=== PATIENT | female | born 2000 | race Caucasian/White ===

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

== ENCOUNTER 2020-10-13 14:52 | Emergency (ER) | payer MEDICAID ==
[~2020-10-13] VITALS: Ht 149.9 cm; Wt 40.8 kg
[2020-10-13 15:00] VITALS: BP 145/98
--- NOTE | 2020-10-13 15:36 | NUR ---
PATIENT A/OX4, BREATHING EVEN AND UNLABORED, NO SOB NOTED, NEEDS ATTENDED. KEPT COMFORTABLE. Patient discharged to home in stable condition. Written and verbal after care instructions given. Patient verbalizes understanding of instruction.
== END 2020-10-13 15:38 | disposition home or self-care (01) ==
LOC: ER 14:59
DX: U07.1 COVID-19 (principal)

== ENCOUNTER 2024-03-09 01:47 | Emergency (ER) | payer BC, MEDICAID ==
[~2024-03-09] VITALS: Ht 149.9 cm; Wt 41.7 kg
[2024-03-09] MEDS ORDERED: ONDANSETRON HCL/PF 4 MG/2 ML VIAL ONE ×2 (03:17→03:41)
[2024-03-09] MEDS: IV NS 0.9% 1,000 ML BAG IV ONE (03:17)
[2024-03-09] MEDS: FAMOTIDINE/PF INJ 20 MG/2 ML VIAL IV ONE (03:17)
[2024-03-09] MEDS ORDERED: FAMOTIDINE/PF INJ 20 MG/2 ML VIAL IV ONE (03:17)
[2024-03-09] MEDS: ONDANSETRON HCL/PF 4 MG/2 ML VIAL IVP ONE (03:18)
[2024-03-09 03:23] LABS: BASOPHILS % (AUTO) 0.3 % (0.0-2.0); EOSINOPHILS % (AUTO) 0.2 % (0.0-6.0); HEMATOCRIT 41 % (33-45); HEMOGLOBIN 13.5 g/dL (11.5-14.8); LYMPHOCYTES # (AUTO) 1.4 K/uL (0.8-4.8); LYMPHOCYTES % (AUTO) 11.1 % (20.0-44.0); MEAN CORPUSCULAR HEMOGLOBIN 29 PG (26.0-33.0); MEAN CORPUSCULAR HGB CONC 33 g/dl (31.0-36.0); MEAN CORPUSCULAR VOLUME 89 fL (82-100); MONOCYTES # (AUTO) 0.8 K/uL (0.1-1.30); MONOCYTES % (AUTO) 6.2 % (2.0-12.0); NEUTROPHILS # (AUTO) 10.2 K/uL (1.8-8.9); NEUTROPHILS % (AUTO) 82.2 % (43.0-81.0); PLATELET COUNT (AUTO) 260 K/uL (150-450); RED BLOOD CELL COUNT(AUTO) 4.61 MIL/uL (4.0-5.2); RED CELL DISTRIBUTION WIDTH 13.4 % (11.5-15.0); WHITE BLOOD COUNT (AUTO) 12.4 K/uL (4.3-11.0)
[2024-03-09 03:33] LABS: CALCIUM, SERUM 9.4 mg/dL (8.5-10.1); CREATININE 0.9 mg/dL (0.6-1.3); POTASSIUM 3.6 mmol/L (3.5-5.1)
[2024-03-09 03:34] LABS: APPEARANCE,URINE CLOUDY (CLEAR); BILIRUBIN,URINE NEGATIVE (NEGATIVE); BLOOD, URINE 3+ Ery/uL (NEGATIVE); COLOR,URINE YELLOW (YELLOW); KETONES,URINE NEGATIVE (NEGATIVE); LEUKOCYTE ESTERASE ,URINE NEGATIVE (NEGATIVE); NITRITE, URINE NEGATIVE (NEGATIVE); PROTEIN,URINE TRACE mg/dl (NEGATIVE); UGLUCOSE NEGATIVE (NEGATIVE); UROBILINOGEN,URINE 0.2 EU/dL (0.2)
[2024-03-09 03:36] LABS: PREGNANCY TEST URINE QUAL NEGATIVE (NEGATIVE)
[2024-03-09 03:38] LABS: ADD URINE CULTURE NO; BACTERIA,URINE Rare /HPF (None Seen); RBC,URINE 21-50 /HPF (0-2); SQUAMOUS EPITHELIAL CELL,UR Few /HPF (None Seen); WBC,URINE 0-2 /HPF (0-3)
[2024-03-09 03:39] LABS: ALBUMIN 4.2 g/dL (3.4-5.0); BILIRUBIN,DIRECT 0.1 mg/dL (0.0-0.2); BILIRUBIN,TOTAL 0.3 mg/dL (0.2-1.0); TOTAL PROTEIN, SERUM 8.2 g/dL (6.4-8.2)
[2024-03-09] MEDS: ONDANSETRON HCL/PF 4 MG/2 ML VIAL IV ONE (03:47)
[2024-03-09] MEDS ORDERED: MAG HYDROX/AL HYDROX/SIMETH 30 ML UDC ONE (04:13)
[2024-03-09] MEDS ORDERED: LIDOCAINE VISCOUS 2% UD 15 ML UDC ONE (04:13)
[2024-03-09] MEDS: LIDOCAINE VISCOUS 2% UD 15 ML UDC MM ONE (04:24)
[2024-03-09] MEDS: MAG HYDROX/AL HYDROX/SIMETH 30 ML UDC PO ONE (04:24)
[2024-03-09] MEDS ORDERED: METOCLOPRAMIDE HCL 10 MG/2 ML VIAL ONE (05:36)
[2024-03-09] MEDS: METOCLOPRAMIDE HCL 10 MG/2 ML VIAL IV ONE (05:37)
[2024-03-09] MEDS ORDERED: ONDA4TAB5 PO (05:57)
[2024-03-09 06:10] VITALS: BP 112/78; TEMP 97.7; O2SAT 99
== END 2024-03-09 06:11 | disposition home or self-care (01) ==
LOC: ER 01:59
DX: R11.2 Nausea with vomiting, unspecified (principal)
CPT/HCPCS: 99284; 96374; 96361; 96375 ×2; 85025; 80048; 87086; 83690; 80076; 84703; 81001; 36415; 84702; J3490; J2765; J2405 ×2; J7030 ×2

== ENCOUNTER → 2024-03-12 | Emergency (ER) | payer BC, MEDICAID ==
[~2024-03-12] VITALS: Ht 149.9 cm; Wt 40.4 kg
[~2024-03-12] MED LIST: HYDR-3972 PO; HYDR-3976 GT; HYDR-4303 PO; IBUP-1953 PO; KETO10TA2 PO; KETOROLAC TROMETHAMINE 15 MG/ML VIAL ONE; ONDA4TAB5 PO; TAMS-12 PO; TRAM50TA2 PO
[2024-03-12] MEDS: IV NS 0.9% 1,000 ML BAG IV ONE (11:30)
[2024-03-12] MEDS: KETOROLAC TROMETHAMINE 15 MG/ML VIAL IV ONE (11:30)
[2024-03-12 11:51] LABS: BASOPHILS % (AUTO) 0.3 % (0.0-2.0); EOSINOPHILS % (AUTO) 0.1 % (0.0-6.0); HEMATOCRIT 45 % (33-45); HEMOGLOBIN 14.7 g/dL (11.5-14.8); LYMPHOCYTES # (AUTO) 2.5 K/uL (0.8-4.8); LYMPHOCYTES % (AUTO) 17.1 % (20.0-44.0); MEAN CORPUSCULAR HEMOGLOBIN 29 PG (26.0-33.0); MEAN CORPUSCULAR HGB CONC 33 g/dl (31.0-36.0); MEAN CORPUSCULAR VOLUME 89 fL (82-100); MONOCYTES # (AUTO) 1.3 K/uL (0.1-1.30); MONOCYTES % (AUTO) 8.7 % (2.0-12.0); NEUTROPHILS # (AUTO) 10.7 K/uL (1.8-8.9); NEUTROPHILS % (AUTO) 73.8 % (43.0-81.0); PLATELET COUNT (AUTO) 270 K/uL (150-450); RED BLOOD CELL COUNT(AUTO) 5.04 MIL/uL (4.0-5.2); RED CELL DISTRIBUTION WIDTH 13.6 % (11.5-15.0); WHITE BLOOD COUNT (AUTO) 14.5 K/uL (4.3-11.0)
[2024-03-12 11:52] LABS: APPEARANCE,URINE SLIGHTLY CLOUDY (CLEAR); BILIRUBIN,URINE 1+ (NEGATIVE); BLOOD, URINE 2+ Ery/uL (NEGATIVE); COLOR,URINE YELLOW (YELLOW); KETONES,URINE 3+ mg/dL (NEGATIVE); LEUKOCYTE ESTERASE ,URINE NEGATIVE (NEGATIVE); NITRITE, URINE NEGATIVE (NEGATIVE); PROTEIN,URINE NEGATIVE (NEGATIVE); UGLUCOSE NEGATIVE (NEGATIVE); UROBILINOGEN,URINE 0.2 EU/dL (0.2)
[2024-03-12 12:09] LABS: ALBUMIN 4.8 g/dL (3.4-5.0); BILIRUBIN,DIRECT 0.2 mg/dL (0.0-0.2); BILIRUBIN,TOTAL 0.8 mg/dL (0.2-1.0); CALCIUM, SERUM 10.8 mg/dL (8.5-10.1); CREATININE 1.2 mg/dL (0.6-1.3); POTASSIUM 3.3 mmol/L (3.5-5.1); TOTAL PROTEIN, SERUM 9.3 g/dL (6.4-8.2)
[2024-03-12 12:12] LABS: ADD URINE CULTURE NO; BACTERIA,URINE Rare /HPF (None Seen); SQUAMOUS EPITHELIAL CELL,UR Rare /HPF (None Seen); WBC,URINE 0-2 /HPF (0-3)
[2024-03-12 14:18] VITALS: BP 122/78; TEMP 98.2; O2SAT 100
== END | disposition home or self-care (01) ==
LOC: ER 10:47
DX: N20.1 Calculus of ureter (principal); N23 Unspecified renal colic
CPT/HCPCS: 99285; 74176; 96374; 76856; 96361; 85025; 80048; 83690; 80076; 81001; 36415; J7030; J1885

== ENCOUNTER 2025-05-28 11:22 | Emergency (ER) | payer MEDICAID ==
[~2025-05-28] VITALS: Ht 149.9 cm; Wt 35.4 kg
[~2025-05-28 11:22] MED LIST changes: -HYDR-3972 PO; -HYDR-3976 GT; -HYDR-4303 PO; -KETOROLAC TROMETHAMINE 15 MG/ML VIAL ONE; -TRAM50TA2 PO
[2025-05-28 11:26] VITALS: BP 105/57; TEMP 98.4
[2025-05-28 11:43] VITALS: O2SAT 99
== END 2025-05-28 11:45 | disposition home or self-care (01) ==
LOC: ER 11:29
DX: J06.9 Acute upper respiratory infection, unspecified (principal); R05.9 Cough, unspecified; Z79.899 Other long term (current) drug therapy